=== PATIENT | male | born 1985 | race Caucasian/White ===

== ENCOUNTER 2022-09-23 03:48 | Emergency (ER) | payer BC, OTHER ==
[2022-09-23 03:54] VITALS: BP 111/70; PULSE 73; RESP 18; TEMP 97.9; BMI 24.3
== END 2022-09-23 06:11 | disposition left against medical advice (07) ==
LOC: JER 03:48
DX: R09.89 Other specified symptoms and signs involving the circulatory and respiratory systems (principal)
CPT/HCPCS: 70490-TC; 71250-TC; 99284-25